=== PATIENT | female | born 1980 | race Caucasian/White ===

== ENCOUNTER 2020-07-24 17:35 | Emergency (ER) | payer OTHER, BC ==
[~2020-07-24] VITALS: Ht 167.6 cm; Wt 72.6 kg
[~2020-07-24 17:35] MED LIST: ACEASPCAF PO; ACET325; ALBU90OI61 INH; AMOX1XR PO; AZIT250 PO; ESCI10 PO; FERR160 PO; HYDACE5 PO; MULVITA PO; MULVITMINE; NAPR550 PO; ONDA4 PO; OXYACE5T PO; PRED10 PO; PROM25 PO; RANI150 PO; RXALBOI INH; RXOXYACE PO; RXPROCODSY PO; [UNRECOGNIZED DRUG - REMARK]
[2020-07-24] MEDS ORDERED: IBUP800 PO (18:32)
[2020-07-24] MEDS ORDERED: Robaxin-750750 MG PO (18:32)
== END 2020-07-24 18:52 | disposition home or self-care (01) ==
LOC: ER 17:35
DX: M25.511 Pain in right shoulder (principal); Z79.899 Other long term (current) drug therapy; Z91.040 Latex allergy status; Z87.442 Personal history of urinary calculi; W01.0XXA Fall on same level from slipping, tripping and stumbling without subsequent striking against object, initial encounter
CPT/HCPCS: 73030; 99283-25